=== PATIENT | male | born 1940 | race Caucasian/White ===

== ENCOUNTER → 2016-12-11 | Outpatient (CLI) | payer MEDICARE, OTHER | LOC: EXRD 12-04 13:00 | DX: Z13.820 Encounter for screening for osteoporosis (principal); M85.852 Other specified disorders of bone density and structure, left thigh | CPT/HCPCS: 77080 ==

== ENCOUNTER → 2021-09-18 | Outpatient (CLI) | payer MEDICARE | LOC: KOH-I 12:52 | DX: Q61.02 Congenital multiple renal cysts (principal) | CPT/HCPCS: 76775 ==